=== PATIENT | male | born 1985 | race Caucasian/White ===

== ENCOUNTER 2016-09-01 20:57 | Emergency (ER) | payer OTHER ==
[2016-09-01] MEDS ORDERED: NS 0.9% 1000 ML* 1,000 ML IV ONE (21:19)
--- NOTE | 2016-09-01 21:33 | ED ---
Respiratory - HPI Summary HPI Summary: 31 M presents with cough for 3 weeks. It is productive and has become more intense at night. He states today he was standing up when he felt lightheadedness. He states that increased his anxiety and he felt nauseous then. He denies any chest pain, SOB, fever, sinus pressure, or sore throat. He has a history of chronic headaches that remain unchanged. He states he took an Excedrin 2 hours prior for his headache. His appetite has remained unchanged and he denies any abdominal pain or vomiting. He has 3 sons who are also sick. - History of Current Complaint Chief Complaint: EDUpperRespComplaint Stated Complaint: UPPER RESPIRATORY COMPLAINT/LIGHTHEADED Time Seen by Provider: 09/01/16 21:07 - Allergy/Home Medications Allergies/Adverse Reactions: Allergies Allergy/AdvReac Type Severity Reaction Status Date / Time No Known Allergies Allergy Verified 08/08/13 19:53 PMH/Surg Hx/FS Hx/Imm Hx Cardiovascular History: Reports: Hx Hypertension Respiratory History: Denies: Hx Asthma - Surgical History Surgery Procedure, Year, and Place: tonsils out as a child Infectious Disease History: No Infectious Disease History: Denies: Traveled Outside the [place] in Last 30 Days - Family History Known Family History: Negative: Respiratory Disease - Social History Alcohol Use: Occasionally Substance Use Type: Reports: None Smoking Status (MU): Never Smoked Tobacco Review of Systems Negative: Fever Positive: Nasal Discharge. Negative: Sore Throat, Ear Ache Negative: Chest Pain Positive: Cough. Negative: Shortness Of Breath Positive: Nausea - resolved. Negative: Abdominal Pain, Vomiting, Diarrhea Positive: Headache All Other Systems Reviewed And Are Negative: Yes Physical Exam Triage Information Reviewed: Yes Vital Signs On Initial Exam: Initial Vitals Temp Pulse Resp BP Pulse Ox 99 F 88 16 163/99 99 09/01/16 20:59 09/01/16 20:59 09/01/16 20:59 09/01/16 20:59 09/01/16 20:59 Vital Signs Reviewed: Yes Appearance: Positive: Well-Appearing Skin: Positive: Warm, Dry Head/Face: Positive: Normal Head/Face Inspection Eyes: Positive: Normal, EOMI, PATRICIA, Conjunctiva Clear ENT: Positive: Normal ENT inspection, Pharynx normal, TMs normal Neck: Positive: Supple, Nontender, No Lymphadenopathy Respiratory/Lung Sounds: Positive: Clear to Auscultation, Breath Sounds Present , Other - neg egophony Cardiovascular: Positive: Normal, RRR Abdomen Description: Positive: Nontender, Soft Bowel Sounds: Positive: Present Neurological: Positive: Sensory/Motor Intact, Alert, Oriented to Person Place, Time, CN Intact II-III Diagnostics - Vital Signs Vital Signs Temp Pulse Resp BP Pulse Ox 09/01/16 20:59 99 F 88 16 163/99 99 - Laboratory Result Diagrams: 09/01/16 21:45 09/01/16 21:45 Lab Statement: Any lab studies that have been ordered have been reviewed, and results considered in the medical decision making process. - Radiology chest Xray Interpretation: No Acute Changes Radiology Interpretation Completed By: Radiologist Disposition - Course Course Of Treatment: 31 M presents with cough for 3 weeks, cough is productive, states had an episode of dizziness when stood up, denies any SOB, chest pain, or fever, lungs clear on exam, dizziness likely related to orthostatic vitals, has resolved now, chest xray normal, labs normal, will treat conservatively patient agrees with plan - Differential Dx - Cardiopulmonary Differential Diagnoses - Cardiopulmonary: Bronchitis, Influenza, Lower Resp Infection - Diagnoses Provider Diagnoses: Acute bronchitis Discharge - Discharge Plan Condition: Good Disposition: HOME Prescriptions: Benzonatate CAP* [Tessalon CAP*] 100 mg PO TID #12 cap Patient Education Materials: Acute Bronchitis (ED) Referrals: Aung Hall DO [Primary Care Provider] - Additional Instructions: Take tessalon up to 3 times a day for cough Saline rinse can be used multiple times a day for nasal congestion Use humidifier in room or place bowls of warm water around room Try to increase fluid intake Follow up with primary care physician within 5 days Return to ED if develop fever, shortness of breath, or if symptoms become worst or develop new symptoms.
--- NOTE | 2016-09-01 21:52 | RAD ---
INDICATION: Productive cough. Former tobacco use. COMPARISON: August 08, 2013 TECHNIQUE: Dual energy PA and routine lateral views of the chest were obtained. REPORT: Elevated lung volumes. Negative for alveolar consolidation, focal pulmonary lesion, pleural effusion, pneumothorax. The heart, pulmonary vasculature, and mediastinal contours are unremarkable. Unremarkable osseous structures and soft tissue contours. IMPRESSION: Elevated lung volumes suggest potential obstructive lung disease. No evidence for pneumonia.
[2016-09-01 22:38] LABS: Hematocrit 47 % (42-52); Hemoglobin 15.5 g/dl (14.0-18.0); Mean Corpuscular HGB Conc 33 g/dl (31-36); Mean Corpuscular Hemoglobin 30 pg (27-31); Mean Corpuscular Volume 92 fL (80-94); Mean Platelet Volume 10 um3 (7.4-10.4); Red Blood Count 5.14 10^6/ul (4.0-5.4); Red Cell Distribution Width 12 % (10.5-15); White Blood Count 7.6 10^3/ul (3.5-10.8)
[2016-09-01 22:48] LABS: Albumin 4.5 g/dL (3.2-5.2); BUN/Creatinine Ratio 10.4 (8-20); Calcium 9.7 mg/dL (8.6-10.3); EGFR African American 119.1 (>60); EGFR Non-African American 92.6 (>60); Potassium 3.3 mmol/L (3.5-5.0); Total Bilirubin 0.4 mg/dL (0.2-1.0); Total Protein 7.5 g/dL (6.4-8.9)
[2016-09-01] MEDS ORDERED: Benzonatate CAP* 100 MG PO ONE (23:01)
[2016-09-01 23:47] VITALS: BP 160/80
== END 2016-09-01 23:45 | disposition home or self-care (01) ==
LOC: ED 20:57
DX: J20.9 Acute bronchitis, unspecified (principal); I10 Essential (primary) hypertension
CPT/HCPCS: 36415; 71020; 80053; 85025; 87502; 96360; 99282; A9270-GY

== ENCOUNTER 2016-10-01 13:17 | Emergency (ER) | payer OTHER ==
[2016-10-01 13:59] VITALS: BP 158/86
--- NOTE | 2016-10-01 14:36 | UC ---
Respiratory Complaint HPI - HPI Summary HPI Summary: 31 yo male with sinus pressure/pain/post nasal drip and cough x 4 days Also it infected/draining right great toe x 5 days no f/c - History of Current Complaint Chief Complaint: UCRespiratory Stated Complaint: COUGH,CONGEST,TOE PAIN Time Seen by Provider: 10/01/16 14:20 Hx Obtained From: Patient Onset/Duration: Sudden Onset, Lasting Days Severity Initially: Moderate Severity Currently: Moderate Pain Intensity: 4 Pain Scale Used: 0-10 Numeric Character: Cough: Nonproductive Associated Signs And Symptoms: Positive: URI, Nasal Congestion, Sinus Discomfort - Allergies/Home Medications Allergies/Adverse Reactions: Allergies Allergy/AdvReac Type Severity Reaction Status Date / Time No Known Allergies Allergy Verified 08/08/13 19:53 PMH/Surg Hx/FS Hx/Imm Hx Previously Healthy: Yes Cardiovascular History Of: Reports: Hypertension Respiratory History Of: Reports: Bronchitis - x 1 Denies: Asthma - Surgical History Surgery Procedure, Year, and Place: tonsils out as a child - Family History Known Family History: Positive: Hypertension, Other - no family hx MRSA Negative: Respiratory Disease - Social History Alcohol Use: Occasionally Substance Use Type: None Smoking Status (MU): Former Smoker Review of Systems Constitutional: Negative Skin: Negative Eyes: Negative ENT: Nasal Discharge Respiratory: Cough Cardiovascular: Negative Gastrointestinal: Negative Genitourinary: Negative Motor: Negative Neurovascular: Negative Musculoskeletal: Negative Neurological: Negative Psychological: Negative All Other Systems Reviewed And Are Negative: Yes Physical Exam Triage Information Reviewed: Yes Appearance: Well-Appearing, No Pain Distress, Well-Nourished Vital Signs: Initial Vital Signs Temp 98.3 F 10/01/16 13:54 Pulse 76 10/01/16 13:54 Resp 16 10/01/16 13:54 BP 158/86 10/01/16 13:54 Pulse Ox 99 10/01/16 13:54 Vital Signs Reviewed: Yes Eyes: Positive: Conjunctiva Clear ENT: Positive: Hearing grossly normal, Nasal congestion, Nasal drainage. Negative: TMs normal - bilat cerumen/unable to vis TMs, Tonsillar exudate, Trismus, Muffled/hoarse voice Dental: Positive: Other: - bilateral sinus pressure and pain. Negative: Gross Decay/Caries @, Abscess @ Neck: Positive: Supple, Nontender Respiratory: Positive: Lungs clear, Normal breath sounds, No respiratory distress, No accessory muscle use Cardiovascular: Positive: No Murmur, Pulses Normal Musculoskeletal: Positive: Strength Intact, ROM Intact, No Edema Neurological: Positive: Alert Psychological Exam: Normal Skin Exam: Normal UC Diagnostic Evaluation - Laboratory O2 Sat by Pulse Oximetry: 99 - normal/not hypoxic Respiratory Course/Dx - Differential Dx/Diagnosis Provider Diagnoses: acute sinusitis. infected right great ingrown nail Discharge - Discharge Plan Condition: Stable Disposition: HOME Prescriptions: DOXYcycline CAP(*) [DOXYcycline 100MG CAP(*)] 100 mg PO BID #20 cap Patient Education Materials: Ingrown Nail (ED), Sinusitis (ED) Referrals: Aung Hall DO [Primary Care Provider] - 5 Days (if not better)
== END 2016-10-01 14:48 | disposition home or self-care (01) ==
LOC: UCEAST 13:17
DX: J01.90 Acute sinusitis, unspecified (principal); L60.0 Ingrowing nail; Z87.891 Personal history of nicotine dependence
CPT/HCPCS: 87070; 87077; 87186; 87205; 87640; 87641; 99212; G0463

== ENCOUNTER 2017-10-01 11:41 | Emergency (ER) | payer OTHER ==
[2017-10-01 14:10] VITALS: BP 148/102
--- NOTE | 2017-10-01 14:30 | UC ---
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 a few days ago, noted increased redness, drainage from tattoo. no fever, chills , no joint pain, tenderness. no other PMH, no meds - History of Current Complaint Chief Complaint: UCWounds Time Seen by Provider: 10/01/17 14:20 Stated Complaint: SKIN ISSUE Hx Obtained From: Patient Onset/Duration: Sudden Onset, Lasting Days Skin Exposure Onset/Duration: Days Ago Onset Severity: Mild Current Severity: Moderate Pain Intensity: 5 - Allergy/Home Medications Allergies/Adverse Reactions: Allergies Allergy/AdvReac Type Severity Reaction Status Date / Time No Known Allergies Allergy Verified 10/01/17 14:10 Review of Systems Musculoskeletal: Edema, Other: - redness around tattoo Neurological: Negative Psychological: Negative Is Patient Immunocompromised?: No All Other Systems Reviewed And Are Negative: Yes PMH/Surg Hx/FS Hx/Imm Hx Previously Healthy: Yes - Surgical History Surgical History: Yes Surgery Procedure, Year, and Place: tonsils out as a child - Family History Known Family History: Positive: Hypertension, Other - no family hx MRSA Negative: Respiratory Disease - Social History Alcohol Use: Occasionally Substance Use Type: None Smoking Status (MU): Former Smoker Physical Exam Triage Information Reviewed: Yes Appearance: Well-Appearing, No Pain Distress, Well-Nourished Vital Signs: Initial Vital Signs Temp 98.2 F 10/01/17 14:04 Pulse 90 10/01/17 14:04 Resp 16 10/01/17 14:04 BP 148/102 10/01/17 14:04 Pulse Ox 100 10/01/17 14:04 Musculoskeletal Exam: Normal - L hand Musculoskeletal: Positive: Other: - full ROM l hand, no pain with palpation over all hand, wrist joints, cap refill <2, fingers pink, warm, no lymphangitic spread. Neurological: Positive: Muscle Tone Normal Psychological Exam: Normal Skin: Positive: Other - erythema at tattoo edges around 1 inch tattoo at base of L thumb, + scabbing, no drainage noted, mild tender to palp Course/Dx - Course Course Of Treatment: erythema from cellulitis, no abscess, abx given, follow up with PCP - Differential Diagnoses - Skin Complaint Differential Diagnoses: Cellulitis - Diagnoses Provider Diagnoses: cellulitis L thumb base dorsal Discharge - Discharge Plan Condition: Good Disposition: HOME Prescriptions: Cephalexin CAP* [Keflex CAP*] 500 mg PO QID #40 cap Patient Education Materials: Cellulitis (ED) Referrals: Aung Hall DO [Primary Care Provider] - Additional Instructions: - FOllow up with primary physician with regards to elevated BP - Antibiotics as directed - FOllow up with PCP or ER with joint pain, increasing redness, fever, chills - Keep area covered when out, OK to shower, pat dry
== END 2017-10-01 14:35 | disposition home or self-care (01) ==
LOC: UCEAST 11:41
DX: L03.012 Cellulitis of left finger (principal); Z87.891 Personal history of nicotine dependence
CPT/HCPCS: 99212; G0463

== ENCOUNTER 2017-12-15 13:00 | Emergency (ER) | payer OTHER ==
[2017-12-15 13:28] VITALS: BP 150/100
--- NOTE | 2017-12-15 13:43 | UC ---
Jose Lechuga Thomas, scribed for Edinson Pickett MD on 12/15/17 at 1340 . Skin Complaint HPI - HPI Summary HPI Summary: The patient is a 32 year old male who five days ago went outdoors. Since then, he thinks that he has had a tick bite. Yesterday night, the patients removed the tick partially. Therefore, the tick has been there more than 72 hours. The patient denies any complaints at this time. - History of Current Complaint Chief Complaint: UCSkin Time Seen by Provider: 12/15/17 13:16 Stated Complaint: TICK BITE Hx Obtained From: Patient Onset/Duration: Lasting Days, Still Present Timing: Constant Current Severity: None Pain Intensity: 0 Pain Scale Used: 0-10 Numeric Location: Other - Left upper arm Aggravating Factor(s): Nothing Alleviating Factor(s): Nothing Associated Signs & Symptoms: Positive: Negative Related History: Other: - Tick bite partially removed by - Allergy/Home Medications Allergies/Adverse Reactions: Allergies Allergy/AdvReac Type Severity Reaction Status Date / Time No Known Allergies Allergy Verified 12/15/17 13:29 Review of Systems Constitutional: Negative - fever Skin: Other - Tick bite Is Patient Immunocompromised?: No All Other Systems Reviewed And Are Negative: Yes PMH/Surg Hx/FS Hx/Imm Hx Previously Healthy: No - HTN; NEGATIVE: DM - Surgical History Surgical History: Yes Surgery Procedure, Year, and Place: tonsils out as a child - Family History Known Family History: Positive: Hypertension, Other - no family hx MRSA Negative: Respiratory Disease - Social History Alcohol Use: Occasionally Substance Use Type: None Smoking Status (MU): Former Smoker Physical Exam - Summary Physical Exam Summary: VITAL SIGNS: Reviewed. GENERAL: Patient is a well-developed and nourished male who is lying comfortable in the stretcher. Patient is not in any acute respiratory distress. HEAD AND FACE: Normocephalic EYES: PERRLA, EOMI x 2. EARS: Hearing grossly intact. MOUTH: Oropharynx within normal limits. NECK: Supple, trachea is midline, no adenopathy, no JVD, no carotid bruit. CHEST: Symmetric, no tenderness at palpation LUNGS: Clear to auscultation bilaterally. No wheezing or crackles. CVS: Regular rate and rhythm, S1 and S2 present, no murmurs or gallops appreciated. ABDOMEN: Soft, non-tender. Bowel sounds are normal. No abdominal abnormal pulsations. EXTREMITIES: Full ROM in all major joints, no edema, no cyanosis or clubbing. NEURO: Alert and oriented x 3. No acute neurological deficits. Speech is normal and follows commands. SKIN: The patient has a small area of erythema to his left upper arm. I removed what was left of the tick on his skin. Triage Information Reviewed: Yes Vital Signs: Initial Vital Signs Temp 99.0 F 12/15/17 13:24 Pulse 83 12/15/17 13:24 Resp 17 12/15/17 13:24 BP 150/100 12/15/17 13:24 Pulse Ox 100 12/15/17 13:24 Vital Signs Reviewed: Yes Course/Dx - Course Course Of Treatment: The patient is a 32 year old male who five days ago went out doors. Since then, he thinks that he has had a tick bite. Yesterday night, the patients removed the tick partially. Therefore, the tick has been there more than 72 hours. The patient denies any complaints at this time. The patient has a small area of erythema to his left upper arm. I removed what was left of the tick on his skin. Since the tick has been there more than 72 hours, I put the patient on a course of doxycycline for 21 days. The patient was found to have increased BP in UC. The patient will follow up with PCP for better control of BP. I discussed all the findings with the patient. Patient was instructed to return to the urgent care or go to ER immediately if any of the symptoms return or worsen. Plan of care was discussed with the patient, and patient understands and agrees. All questions were answered to patient satisfaction. There were no further complaints or concerns. - Diagnoses Provider Diagnoses: Tick bite Discharge - Sign-Out/Discharge Documenting (check all that apply): Discharge - Discharge Plan Condition: Stable Disposition: HOME Prescriptions: DOXYcycline CAP(*) [DOXYcycline 100MG CAP(*)] 100 mg PO BID #42 cap Patient Education Materials: Tick Bite (ED) Referrals: Aung Hall DO [Primary Care Provider] - Additional Instructions: Take medications as instructed Increase your fluid intake Return to the UC if symptoms worsen The documentation as recorded by the Jose walker Thomas accurately reflects the service I personally performed and the decisions made by me, Edinson Pickett MD.
== END 2017-12-15 13:38 | disposition home or self-care (01) ==
LOC: UCEAST 13:00
DX: S40.862A Insect bite (nonvenomous) of left upper arm, initial encounter (principal); W57.XXXA Bitten or stung by nonvenomous insect and other nonvenomous arthropods, initial encounter; Y93.9 Activity, unspecified; Y92.9 Unspecified place or not applicable; Z87.891 Personal history of nicotine dependence
CPT/HCPCS: 99211; G0463

== ENCOUNTER 2018-04-03 09:05 | Day surgery (SDC) | payer OTHER ==
--- NOTE | 2018-03-19 12:52 | HP ---
AMENDED REPORT NOW INCLUDES COSIGNER DESIGNATION - ESIGNED BEFORE ADJUSTMENT CC: Dr. Aung Hall * ADMISSION HISTORY AND PHYSICAL: DATE OF ADMISSION: 04/03/18 ATTENDING SURGEON: Dr. Josh Escobedo.* (DICTATED BY SARAH SHEETS) CHIEF COMPLAINT: Left inguinal hernia. HISTORY OF PRESENT ILLNESS: This is a 33-year-old generally healthy male, who presents with a 10 year or greater history of left inguinal hernia. This began as a bulge in the left groin and over time has continued to increase in size with extension of the hernia into the scrotal sac. He was seen initially by Dr. Escobedo in 2014 at which time surgery was scheduled. However, patient declined to have surgery at that time. He was prompted by his to return for reconsideration and he was seen again by Dr. Escobedo in September of this year. At that time, exam again confirmed the presence of a large, reducible left inguinoscrotal hernia with no hernia noted on the right. Dr. Escobedo has explained the indications for surgery, the risks, benefits and alternatives and patient understands the expected perioperative course. He would like to proceed as scheduled with laparoscopic repair of left inguinal hernia with mesh. Of note, patient denies any significant GI or symptoms or anything to suggest incarceration or strangulation. In previous years, the hernia was self reduce when he was recumbent. However, at this point, the hernia remains present all the time regardless of position or activity. PAST MEDICAL HISTORY: Migraine headaches. At one point, he was diagnosed with being hypertensive though this appears to be a white coat syndrome as his pressures had been normal in other settings. PAST SURGICAL HISTORY: His only previous surgery is tonsillectomy. No reported surgical or anesthesia problems. CURRENT MEDICATIONS: Excedrin Migraine XS 250/250/65 two tablets q.4-6 hours p.r.n. headache (he uses multiple times weekly and sometimes daily). DRUG ALLERGIES: None known. FAMILY HISTORY: Negative for anesthesia problems, bleeding, or clotting disorders. SOCIAL HISTORY: Patient is . 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 He did previously smoke but quit nine years ago. He denies use of alcohol or other recreational drugs. REVIEW OF SYSTEMS: General: No recent constitutional symptoms or acute illnesses. HEENT: No problems reported. Cardiovascular: No chest pain, palpitations. History of white coat syndrome. Respiratory: No history of asthma , chronic cough, or shortness of breath. GI: No problems reported. : No problems reported. Musculoskeletal: No problems reported. Endocrine: No diabetes or thyroid dysfunction. PHYSICAL EXAMINATION GENERAL: Well-nourished, well-developed male, in no acute distress. VITAL SIGNS: Height 67 inches, weight 140 pounds, temperature 98, blood pressure 132/84, pulse 78, respirations 18. SKIN: Warm and dry. No rashes or lesions noted. Multiple tattoos. HEENT: Pupils equal and round, reactive. EOMs intact. No conjunctival pallor. Oropharynx: No intraoral lesions. Teeth in good repair. NECK: No lymphadenopathy, thyromegaly, or masses. LUNGS: Clear to auscultation. No wheezes. HEART: Regular rate and rhythm. No murmur noted. ABDOMEN: Soft, nontender to palpation. No palpable masses or organomegaly with the exception of large left inguinoscrotal hernia per Dr. Escobedo' exam, which is not repeated today per patient's request. No hernia on the right per Dr. Escobedo' exam. GENITALIA AND RECTAL: Otherwise not examined. BACK: No spinous process or CVA tenderness. EXTREMITIES: No edema. NEUROLOGICAL: Grossly intact. IMPRESSION: Left inguinal hernia. PLAN: Laparoscopic repair of left inguinal hernia with mesh. SARAH SHEETS [id number]/[facility] #: [id number] MTDDerik
[~2018-04-03 09:05] MED LIST: Buffered Lidocaine 0.9% SYRIN* 5 ML/SYR SYRINGE INTRADERM ONE; Famotidine IV* 10 MG/ML 2 ML (20 mg) IV ONE
[2018-04-03] MEDS ORDERED: Famotidine IV* 10 MG/ML 2 ML (20 mg) ONE (09:13)
[2018-04-03] MEDS ORDERED: ceFAZolin 2 GM PREMIX (*) 2 GM/50 ML BAG IVPB ONE (09:13)
[2018-04-03] MEDS ORDERED: fentaNYL* 50 MCG/ML 2 ML VIAL (100 MCG VIAL) ONE ×3 (09:38→11:32)
[2018-04-03] MEDS ORDERED: Midazolam* 1 MG/ML 5 ML VIAL (5 MG) ONE (09:38)
[2018-04-03] MEDS ORDERED: Rocuronium* 10 MG/ML VIAL ONE (09:43)
[2018-04-03] MEDS ORDERED: Bupivacaine 0.5% PF 10 ML VIAL INJ ONE (10:43)
[2018-04-03] MEDS ORDERED: Bupivacaine 0.25% W/EPI* 10 ML SDV ONE (10:45)
[2018-04-03] MEDS ORDERED: Propofol* 10 MG/ML 20 ML BTL IV PUSH ONE ×2 (11:21→13:28)
[2018-04-03] MEDS ORDERED: Succinylcholine* 20 MG/ML 10 ML VIAL ONE (11:21)
[2018-04-03] MEDS ORDERED: Ondansetron INJ* 2 MG/ML VIAL ONE (11:21)
[2018-04-03] MEDS ORDERED: Dexamethasone IV* 4 MG/ML 1 ML (4 MG) ONE (11:21)
[2018-04-03] MEDS ORDERED: Ketorolac INJ* 30 MG/ML 1 ML VIAL ONE (11:21)
[2018-04-03] MEDS ORDERED: Lidocaine 2% PF * 5 ML VIAL ONE (11:22)
[2018-04-03] MEDS ORDERED: Naloxone* 0.4 MG/ML 1 ML VIAL IV PRN (12:00)
[2018-04-03] MEDS ORDERED: HYDROmorphone INJ* 0.5 MG/0.5 ML SYRINGE IV PRN (12:00)
[2018-04-03] MEDS ORDERED: DiMENhydriNATE IV* 50 MG/ML VIAL IV PUSH PRN (12:00)
[2018-04-03] MEDS ORDERED: oxyCODONE/Acetamin 5/325 MG* TAB PO PRN (12:00)
[2018-04-03] MEDS ORDERED: HYDROmorphone INJ* 0.5 MG/0.5 ML SYRINGE ONE (12:26)
--- NOTE | 2018-04-03 12:56 | OP ---
Operative Report - Blank - Operative Report Date of Operation: 04/03/18 Note: Brief Operative Note Preop Dx: Right inguinal hernia Postop Dx: same; incarcerated indirect Procedure: Laparoscopic repair RIH w/ mesh Anesthesia: GET Surgeon: Fanny Camera Engineer: SARAH Kaur Fluids: 1800 ml RL EBL: none Specimen: none Drains: none Findings: dictated
[2018-04-03] MEDS ORDERED: oxyCODONE/Acetamin 5/325 MG* TAB ONE (14:42)
[2018-04-03] MEDS ORDERED: DiMENhydriNATE IV* 50 MG/ML VIAL ONE (14:54)
[2018-04-03 15:20] VITALS: BP 143/84
--- NOTE | 2018-04-03 22:28 | OP ---
CC: Aung Hall DO * DATE OF OPERATION: 04/03/18 - [facility] DATE OF : 89 SURGEON: Josh Escobedo MD SENIOR MECHANICAL PROJECT MANAGER: SARAH Bach ANESTHESIOLOGIST: Clara Burger MD ANESTHESIA: General endotracheal. PRE-OP DIAGNOSIS: Left inguinal hernia. POST-OP DIAGNOSIS: Left inguinal hernia. OPERATIVE PROCEDURE: Laparoscopic repair of left inguinal hernia with mesh. ESTIMATED BLOOD LOSS: Minimal. IV FLUIDS: 1.8 L crystalloids. SPECIMEN: None. DRAIN: None. COMPLICATION: None. COUNTS: Instrument, needle, and sponge counts were correct. DESCRIPTION OF PROCEDURE: The patient was brought to the operating room, placed on table supine. Sequential compression devices were placed in both lower extremities and general anesthesia was administered. He had a Pitts catheter placed. He was positioned and padded appropriately. A large inguinal , scrotal, left inguinal hernia was partially reduced; however, it was not completely able to be reduced and therefore, a decision was made to perform a transabdominal approach in combination with the extraperitoneal approach. After the patient had been prepped and draped in the usual sterile fashion and having received appropriate antibiotics, time-out was performed. Local anesthetic was infiltrated into the skin and soft tissue prior to making each incision. The entry into the abdomen was through an infraumbilical incision transversely and after dividing subcutaneous tissues, the anterior rectus sheath was incised transversely to the left of midline and a preperitoneal balloon dissector was positioned in the preperitoneal space down to the pubic symphysis and insufflated under direct visualization. Subsequently , a 12 mm blunt port was placed into the preperitoneal space and insufflation of carbon dioxide to a pressure of 15 mmHg was performed showing the proper space had been dissected. At this point, the peritoneal cavity was entered through the infraumbilical incision, the 12 mm port was positioned in the peritoneal cavity. Carbon dioxide was insufflated to a pressure of 15 mmHg. Inspection of the groin revealed that there was a large tongue of omentum within the large left inguinal hernia. In order to reduce this, 5 mm trocars were placed, one laterally in the right lower quadrant and one suprapubic in the midline. With the use of atraumatic graspers and LigaSure to achieve hemostasis, the omentum was completely reduced. Subsequently, the 12 mm port was repositioned in the preperitoneal space and 5 mm ports were repositioned into the preperitoneal space in the midline lower abdomen. The dissection proceeded from midline laterally to the left side dissecting out the peritoneal sac. Because of the large size of the sac, it was decided to transect this after identifying the cord structures and then the large opening in the peritoneal sac was closed with endoscopic clip placements. Then, a ProGrip mesh was used for the repair using a 10 x 15 cm mesh that was trimmed laterally to taper it slightly. The mesh was placed into the preperitoneal space and it was unfurled to cover the direct, indirect and femoral spaces. Next, the pneumoperitoneum was reestablished so that the repair could be viewed from the peritoneal cavity. The mesh appeared to be in good position and well covered. At this point, the ports were all removed under direct visualization and carbon dioxide was released. The infraumbilical site was closed in 2 layers with 0 Vicryl to approximate the posterior and anterior rectus sheath. The skin incisions were closed with 4-0 Monocryl and Steri-Strips were applied. The patient tolerated the procedure well, was extubated uneventfully and transferred to Recovery in stable condition. [id number]/[facility] #: [id number] ABBY
== END 2018-04-03 15:50 | disposition home or self-care (01) ==
LOC: OR 09:05
PROVIDERS: ATTEND Surgery
DX: K40.90 Unilateral inguinal hernia, without obstruction or gangrene, not specified as recurrent (principal); I10 Essential (primary) hypertension; Z87.891 Personal history of nicotine dependence; F41.9 Anxiety disorder, unspecified; J30.89 Other allergic rhinitis
CPT/HCPCS: A9270-GY; J0330; J0690; J1100; J1170; J1240; J1885; J2250; J2405; J2704; J3010